=== PATIENT | male | born 1955 | race Caucasian/White ===

== ENCOUNTER 2018-02-05 06:57 | Day surgery (SDC) | payer MEDICARE ==
[~2018-02-05] VITALS: Ht 180.3 cm; Wt 102.1 kg
[~2018-02-05 06:57] MED LIST: ASPI81CH PO; ATOR10 PO; CELE200 PO; CHOL10002 PO; CIPR500 PO; CLOP75 PO; CYCL10; GABA300 PO; HYDMOR2 PO; IBUP800; IBUPROFEN; MULVITMIND PO; OXYACE5C; OXYACE5T PO; OXYACE7.5T PO; PRED20 PO; RXOXYACE PO
== END 2018-02-05 08:52 | disposition home or self-care (01) ==
LOC: ORSCMMR 06:57 → ORD 08:00 → ORSCMMR 08:52
PROVIDERS: Internal Medicine Gastroenterology
PROC: 0DBL8ZX Excision of Transverse Colon, Via Natural or Artificial Opening Endoscopic, Diagnostic (ICD-10-PCS; principal; 2018-02-05 08:00)
PROC: 0DBP8ZX Excision of Rectum, Via Natural or Artificial Opening Endoscopic, Diagnostic (ICD-10-PCS; principal; 2018-02-05 08:00)
PROC: 0DBN8ZX Excision of Sigmoid Colon, Via Natural or Artificial Opening Endoscopic, Diagnostic (ICD-10-PCS; principal; 2018-02-05 08:00)
DX: Z12.11 Encounter for screening for malignant neoplasm of colon (principal); K63.5 Polyp of colon; K62.1 Rectal polyp; D12.3 Benign neoplasm of transverse colon; Z80.0 Family history of malignant neoplasm of digestive organs; E78.00 Pure hypercholesterolemia, unspecified; Z87.891 Personal history of nicotine dependence; Z79.82 Long term (current) use of aspirin; Z79.899 Other long term (current) drug therapy
CPT/HCPCS: 88305; J7120